=== PATIENT | male | born 1970 | race Caucasian/White ===

== ENCOUNTER 2020-05-10 10:06 | Emergency (ER) | payer OTHER ==
[2020-05-10 11:25] LABS: Absolute Lymphocytes (CBC) 0.9 K/uL (0.7-4.9); Basophils % 0.4 % (0-1.3); Hematocrit 42.3 % (39.6-49.0); Lymphocytes % 9.6 % (15.3-44.8); MPV 8.6 fL (7.6-11.3); RBC Red Blood Cell Count 4.72 M/uL (4.33-5.43)
[2020-05-10] MEDS ORDERED: NA CHLORIDE 0.9% 1,000 ML ONE ×2 (11:38→12:33)
[2020-05-10] MEDS ORDERED: ONDANSETRON 4 MG/2 ML VIAL ONE (11:38)
[2020-05-10 11:46] LABS: ALT/SGPT 21 U/L (12-78); AST/SGOT 19 U/L (15-37); Albumin 3.2 g/dL (3.4-5.0); Alkaline Phosphatase 100 U/L (45-117); BUN Blood Urea Nitrogen 8 mg/dL (7-18); Bicarbonate 26 mmol/L (21-32); Bilirubin Direct 0.2 mg/dL (0-0.2); Bilirubin Total 0.7 mg/dL (0.2-1.0); Glucose Level 104 mg/dL (74-106); Lipase 143 U/L (73-393); NT PRO-BNP 45 pg/mL (<125); Potassium 4.2 mmol/L (3.5-5.1); Protein, Total 7.1 g/dL (6.4-8.2); Sodium Level 136 mmol/L (136-145); Troponin (Emerg Dept Use Only) < 0.02 ng/mL (0.0-0.045)
[2020-05-10 12:15] LABS: Urine Blood NEGATIVE (NEG); Urine Glucose NEGATIVE (NEG)
[2020-05-10 12:16] LABS: Urine Protein NEGATIVE (NEG); Urine pH 5.5 (5.0-7.0)
--- NOTE | 2020-05-10 12:34 | RAD REPORT ---
EXAM DESCRIPTION: RAD - Chest Single View - 05/10/2020 12:16 pm CLINICAL HISTORY: ABDOMINAL DISTENTION Chest pain. COMPARISON: No comparisons FINDINGS: Portable technique limits examination quality. 3-4 cm mass with spiculated margins is seen right suprahilar location. No focal infiltrate is seen. T he heart is normal in size. No displaced fractures.Single screw is seen in the left glenoid. IMPRESSION: 3-4 cm spiculated mass right suprahilar location. Recommend CT chest followup assessment .
--- NOTE | 2020-05-10 12:55 | RAD REPORT ---
EXAM DESCRIPTION: CT - Head Brain Wo Cont - 05/10/2020 12:37 pm CLINICAL HISTORY: Headache;Weakness, history of stage IV lung cancer COMPARISON: No comparisons TECHNIQUE: Axial 5 mm thick images of the head were obtained without IV contrast. All CT scans are performed using dose optimization technique as appropriate and may include automated exposure control or mA/KV adjustment according to patient size. FINDINGS: No intracranial hemorrhage present. No mass effect, edema or shift of midline structures. No acute cortical based infarction seen. Ventricles are normal. In the left parietal lobe near the co nvexity there is encephalomalacia present in the 7 millimeter calcification. Overlying craniotomy ailyn gical changes are present. This is presumed to be site of the resected or treated metastatic lesion. No recurrent mass or edema in this region. Mastoid air cells and visualized portions of the paranasal sinuses are clear. No acute bony findings. IMPRESSION: No hemorrhage, new mass lesion or other acute intracranial finding. Postsurgical changes are present to the skull near the left parietal lobe convexity. No evidence for residual mass or edema at this site.
--- NOTE | 2020-05-10 13:01 | RAD REPORT ---
EXAM DESCRIPTION: CT - Abdomen Pelvis W Contrast - 05/10/2020 12:39 pm CLINICAL HISTORY: ABD PAIN, history of stage IV lung cancer with prior resection of a brain metastas is COMPARISON: No comparisons TECHNIQUE: Biphasic, helical CT imaging of the abdomen and pelvis was performed following 100 ml non -ionic IV contrast. Oral contrast was administered. All CT scans are performed using dose optimization technique as appropriate and may include automated exposure control or mA/KV adjustment according to patient size. FINDINGS: No suspicious findings in the lung bases. The liver, spleen, and pancreas show no suspicious findings. Gallbladder is absent. No biliary tree d ilatation. Symmetric renal function is seen with no hydronephrosis or suspicious renal mass. No pyelonephritis o r acute parenchymal process. No bladder abnormalities. No adrenal abnormalities. A few mildly prominent loops of jejunum noted without wall thickening or edema. No gastric dilatation or wall thickening. No ileum acute finding. The appendix is normal. No colon wall thickening or mass . Sigmoid colon redundant. No specific findings for colitis or diverticulitis. No free air, free fluid or inflammatory stranding. No mass or bulky lymphadenopathy. Small bilater al fat only inguinal hernias are present. No pathologic bone changes seen. L5-S1 disc space is narrowed with degenerative disc gas. Endplate sp urs are present. No acute vascular finding. IMPRESSION: Contrast enhanced CT abdomen and pelvis showing no acute or emergent finding. No eviden ce for liver or peritoneal metastatic disease. A few prominent loops of jejunum are present believed be within range of normal. A mild enteritis is possible. Advanced for age degenerative change at the L5-S1 disc level. No pathologic bone finding.
--- NOTE | 2020-05-10 13:15 | ER ---
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 Pt denies aa5 nausea/vomiting/diarrhea. Pt states "I can't eat". 10:16 Coronavirus screen: Client denies travel out of the [place] in the last 14 days. At this aa5 time, the client does not indicate any symptoms associated with coronavirus-19. Ebola Screen: Patient negative for fever greater than or equal to 101.5 degrees Fahrenheit, and additional compatible Ebola Virus Disease symptoms. Initial Sepsis Screen: Does the patient meet any 2 criteria? No. Patient's initial sepsis screen is negative. Does the patient have a suspected source of infection? No. Patient's initial sepsis screen is negative. Risk Assessment: Do you want to hurt yourself or someone else? Patient reports no desire to harm self or others. Onset of symptoms was April 2020. 10:16 Acuity: LISA 3 aa5 10:16 Method Of Arrival: Ambulatory aa5 Triage Assessment: 10:48 General: Appears in no apparent distress. uncomfortable, Behavior is calm, cooperative, jl7 appropriate for age. Pain: Complains of pain in abdomen diffusely Pain currently is 3 out of 10 on a pain scale. Neuro: Level of Consciousness is awake, alert, obeys commands, Oriented to person, place, time, situation. Cardiovascular: Patient's skin is warm and dry. Respiratory: Airway is patent Respiratory effort is even, unlabored, Respiratory pattern is regular, symmetrical. GI: Abdomen is non-distended, Last BM was May 05, 2020. Derm: Skin is pink, warm \\T\\ dry. Historical: - Allergies: 10:42 Fentanyl; aa5 - Home Meds: 10:48 Keppra 750 mg Oral tab 1 tab 2 times per day [Active]; atorvastatin 80 mg oral tab 1 jl7 tab once daily [Active]; prednisone 20 mg Oral tab [Active]; aspirin 81 mg Oral TbEC once daily [Active]; - PMHx: 10:42 Stage 4 Lung and Brain Cancer; aa5 10:48 High Cholesterol; Seizures; jl7 - PSHx: 10:42 Brain sx; aa5 - Immunization history:: Adult Immunizations unknown. - Social history:: Smoking status: Patient reports the use of cigarette tobacco products, smokes one-half pack cigarettes per day. - Family history:: not pertinent. Screenin:50 Abuse screen: Denies threats or abuse. Denies injuries from another. Nutritional jl7 screening: No deficits noted. Tuberculosis screening: No symptoms or risk factors identified. Assessment: 10:50 General: See triage assessment. jl7 11:20 Reassessment: Patient is alert, oriented x 3, equal unlabored respirations, skin aa5 warm/dry/pink. Pt finished CT oral contrast, CT notified. . 12:30 Reassessment: To bedside to administer NS bolus, pt currently in radiology. . aa5 Vital Signs: 10:16 BP 99 / 74; Pulse 93; Resp 18 S; Temp 98.3(O); Pulse Ox 100% on R/A; Weight 111.58 kg aa5 (R); Height 5 ft. 10 in. (177.80 cm) (R); Pain 3/10; 12:00 BP 92 / 70; Pulse 86; Resp 17; Temp 98.0; Pulse Ox 97% on R/A; mh5 12:55 BP 106 / 89; Pulse 82; Resp 22; Temp 97.8(O); Pulse Ox 98% on R/A; mh5 10:16 Body Mass Index 35.30 (111.58 kg, 177.80 cm) aa5 ED Course: 10:10 Patient arrived in ED. ag5 10:16 Arm band placed on. aa5 10:25 Thai Chicas, RN is Primary Nurse. bp 10:25 Dago Stewart MD is Attending Physician. kori 10:41 Triage completed. aa5 10:42 Jase Brunson, RN is Primary Nurse. jl7 10:50 Patient has correct armband on for positive identification. Bed in low position. Call jl7 light in reach. Side rails up X 1. Pulse ox on. NIBP on. 11:15 Initial lab(s) drawn, by me, sent to lab. Inserted saline lock: 20 gauge in right aa5 antecubital area, using aseptic technique. Blood collected. 12:16 XRAY Chest (1 view) In Process Unspecified. EDMS 12:37 CT Abd/Pelvis - PO and IV Contrast In Process Unspecified. EDMS 12:37 CT Head Brain wo Cont In Process Unspecified. EDMS 13:14 Nicola Milian MD is Referral Physician. kori 13:14 Rebeca Gallegos MD is Referral Physician. [facility] 13:14 Mercy Starr MD is Referral Physician. [facility] 14:37 No provider procedures requiring assistance completed. IV discontinued, intact, jl7 bleeding controlled, No redness/swelling at site. Pressure dressing applied. Administered Medications: 11:22 Drug: NS 0.9% 1000 ml Route: IV; Rate: 1 bolus; Site: right antecubital; aa5 14:10 Follow up: Response: No adverse reaction; IV Status: Completed infusion; IV Intake: jl7 1000ml 11:22 Drug: Zofran (Ondansetron) 4 mg Route: IVP; Site: right antecubital; aa5 12:00 Follow up: Response: No adverse reaction; Nausea is decreased jl7 13:00 Drug: NS 0.9% 1000 ml Route: IV; Rate: 1 bolus; Site: right antecubital; aa5 13:25 Follow up: IV Status: Completed infusion; IV Intake: 1000ml jl7 14:30 Drug: SOLU-Medrol 125 mg Route: IVP; Site: right antecubital; jl7 14:37 Follow up: Response: No adverse reaction jl7 Intake: 13:25 IV: 1000ml; Total: 1000ml. jl7 14:10 IV: 1000ml; Total: 2000ml. jl7 Outcome: 13:15 Discharge ordered by . [facility] 14:37 Discharged to home ambulatory. jl7 14:37 Condition: stable 14:37 Discharge instructions given to patient, Instructed on discharge instructions, follow up and referral plans. medication usage, Demonstrated understanding of instructions, follow-up care, medications, Prescriptions given X 3. 14:38 Patient left the ED. jl7 Signatures: Dispatcher [employer] EDDago Becerra MD MD cha Calderon, Audri, RN RN 5 [facility] Jase Brunson RN RN jl7 Thai Chicas RN RN bp Carolee Sorensen ag5 Corrections: (The following items were deleted from the chart) 12:41 12:39 BP 92 / 70; Pulse 86bpm; Resp 17bpm; Pulse Ox 97% RA; Temp 98.0F; mh5 mh5
--- NOTE | 2020-05-10 13:15 | EDPHYS ---
Physician Documentation [facility] Name: Zeb Chamorro Age: 49 yrs Sex: Male : 1970 Arrival Date: 05/10/2020 Time: 10:10 Bed 5 Private MD: CROW Physician Dago Stewart HPI: 05/10 11:11 This 49 yrs old Male presents to ER via Ambulatory with complaints of kori Decreased Appetite, Abdominal Pain. 11:11 The patient presents with abdominal pain in the upper abdomen, in the lower abdomen. kori Onset: The symptoms/episode began/occurred 2 day(s) ago. The patient presents to the emergency department with nausea, abdominal pain, of the right upper quadrant, left upper quadrant, right lower quadrant and left lower quadrant. Onset: The symptoms/episode began/occurred 2 day(s) ago. Possible causes: unknown. The symptoms are aggravated by nothing. The symptoms are alleviated by remaining still. Associated signs and symptoms: The patient has no apparent associated signs or symptoms. The symptoms do not radiate. Associated signs and symptoms: none. Historical: - Allergies: 10:42 Fentanyl; aa5 - Home Meds: 10:48 Keppra 750 mg Oral tab 1 tab 2 times per day [Active]; atorvastatin 80 mg oral tab 1 jl7 tab once daily [Active]; prednisone 20 mg Oral tab [Active]; aspirin 81 mg Oral TbEC once daily [Active]; - PMHx: 10:42 Stage 4 Lung and Brain Cancer; aa5 10:48 High Cholesterol; Seizures; jl7 - PSHx: 10:42 Brain sx; aa5 - Immunization history:: Adult Immunizations unknown. - Social history:: Smoking status: Patient reports the use of cigarette tobacco products, smokes one-half pack cigarettes per day. - Family history:: not pertinent. ROS: 11:11 Constitutional: Negative for fever, chills, and weight loss, Eyes: Negative for injury, kori pain, redness, and discharge, ENT: Negative for injury, pain, and discharge, Neck: Negative for injury, pain, and swelling, Cardiovascular: Negative for chest pain, palpitations, and edema, Respiratory: Negative for shortness of breath, cough, wheezing, and pleuritic chest pain, Back: Negative for injury and pain, : Negative for injury, bleeding, discharge, and swelling, MS/Extremity: Negative for injury and deformity, Skin: Negative for injury, rash, and discoloration, Neuro: Negative for headache, weakness, numbness, tingling, and seizure, Psych: Negative for depression, anxiety, suicide ideation, homicidal ideation, and hallucinations, Allergy/Immunology: Negative for hives, rash, and allergies, Endocrine: Negative for neck swelling, polydipsia, polyuria, polyphagia, and marked weight changes, Hematologic/Lymphatic: Negative for swollen nodes, abnormal bleeding, and unusual bruising. 11:11 Abdomen/GI: Positive for abdominal pain, nausea, anorexia. Exam: 11:11 Constitutional: This is a well developed, well nourished patient who is awake, alert, kori and in no acute distress. Head/Face: Normocephalic, atraumatic. Eyes: Pupils equal round and reactive to light, extra-ocular motions intact. Lids and lashes normal. Conjunctiva and sclera are non-icteric and not injected. Cornea within normal limits. Periorbital areas with no swelling, redness, or edema. ENT: Nares patent. No nasal discharge, no septal abnormalities noted. Tympanic membranes are normal and external auditory canals are clear. Oropharynx with no redness, swelling, or masses, exudates, or evidence of obstruction, uvula midline. Mucous membranes moist. Neck: Trachea midline, no thyromegaly or masses palpated, and no cervical lymphadenopathy. Supple, full range of motion without nuchal rigidity, or vertebral point tenderness. No Meningismus. Chest/axilla: Normal chest wall appearance and motion. Nontender with no deformity. No lesions are appreciated. Cardiovascular: Regular rate and rhythm with a normal S1 and S2. No gallops, murmurs, or rubs. Normal PMI, no JVD. No pulse deficits. Respiratory: Lungs have equal breath sounds bilaterally, clear to auscultation and percussion. No rales, rhonchi or wheezes noted. No increased work of breathing, no retractions or nasal flaring. Back: No spinal tenderness. No costovertebral tenderness. Full range of motion. Male : Normal genitalia with no discharge or lesions. Skin: Warm, dry with normal turgor. Normal color with no rashes, no lesions, and no evidence of cellulitis. MS/ Extremity: Pulses equal, no cyanosis. Neurovascular intact. Full, normal range of motion. Neuro: Awake and alert, GCS 15, oriented to person, place, time, and situation. Cranial nerves II-XII grossly intact. Motor strength 5/5 in all extremities. Sensory grossly intact. Cerebellar exam normal. Normal gait. Psych: Awake, alert, with orientation to person, place and time. Behavior, mood, and affect are within normal limits. 11:11 Abdomen/GI: Inspection: abdomen appears normal, Bowel sounds: normal, Palpation: mild abdominal tenderness, in the right upper quadrant, left upper quadrant, right lower quadrant and left lower quadrant, Liver: no appreciated palpable abnormalities, Hernia: not appreciated. 11:32 ECG was reviewed by the Attending Physician. [facility] Vital Signs: 10:16 BP 99 / 74; Pulse 93; Resp 18 S; Temp 98.3(O); Pulse Ox 100% on R/A; Weight 111.58 kg aa5 (R); Height 5 ft. 10 in. (177.80 cm) (R); Pain 3/10; 12:00 BP 92 / 70; Pulse 86; Resp 17; Temp 98.0; Pulse Ox 97% on R/A; mh5 12:55 BP 106 / 89; Pulse 82; Resp 22; Temp 97.8(O); Pulse Ox 98% on R/A; mh5 10:16 Body Mass Index 35.30 (111.58 kg, 177.80 cm) aa5 MDM: 10:25 Patient medically screened. [facility] 11:13 Differential diagnosis: Nonspecific abd pain, gastritis, appendicitis, diverticulitis, kori viral gastroenteritis, gastroenteritis, bowel obstruction, cholecystitis, Cholelithiasis, diverticulitis, myocardia ischemia or infarction, non-specific abd pain, pancreatitis, Peptic Ulcer Disease, Pyelonephritis. Data reviewed: vital signs, nurses notes, lab test result(s), EKG, radiologic studies, CT scan, plain films. Data interpreted: Pulse oximetry: on room air is 100 %. Test interpretation: by ED physician or midlevel provider: ECG, plain radiologic studies. Counseling: I had a detailed discussion with the patient and/or guardian regarding: the historical points, exam findings, and any diagnostic results supporting the discharge/admit diagnosis, lab results, radiology results. 05/10 11:10 Order name: Basic Metabolic Panel; Complete Time: 12:17 kori 05/10 11:10 Order name: CBC with Diff; Complete Time: 11:33 [facility] 05/10 11:10 Order name: LFT's; Complete Time: 12:17 [facility] 05/10 11:10 Order name: Magnesium; Complete Time: 12:17 [facility] 05/10 11:10 Order name: NT PRO-BNP; Complete Time: 12:17 [facility] 05/10 11:10 Order name: Troponin (emerg Dept Use Only); Complete Time: 12:17 [facility] 05/10 11:10 Order name: XRAY Chest (1 view); Complete Time: 13:12 [facility] 05/10 11:10 Order name: Lipase; Complete Time: 12:17 [facility] 05/10 11:10 Order name: CT Abd/Pelvis - PO and IV Contrast; Complete Time: 13:12 [facility] 05/10 11:15 Order name: CT Head Brain wo Cont; Complete Time: 13:12 [facility] 05/10 11:26 Order name: Urine Dipstick--Ancillary (enter results); Complete Time: 12:17 05/10 11:10 Order name: EKG; Complete Time: 11:10 [facility] 05/10 11:10 Order name: Cardiac monitoring; Complete Time: 11:23 [facility] 05/10 11:10 Order name: EKG - Nurse/Tech; Complete Time: 11: [facility] 05/10 11:10 Order name: IV Saline Lock; Complete Time: 11: [facility] 05/10 11:10 Order name: Labs collected and sent; Complete Time: 11:23 [facility] 05/10 11:10 Order name: O2 Per Protocol; Complete Time: 11: [facility] 05/10 11:10 Order name: O2 Sat Monitoring; Complete Time: 11: [facility] 05/10 11:10 Order name: Urine Dipstick-Ancillary (obtain specimen); Complete Time: 11:23 [facility] EC:32 Rate is 77 beats/min. Rhythm is regular. QRS [place] is Normal. LA interval is normal. QRS kori interval is normal. QT interval is normal. No Q waves. T waves are Normal. No ST changes noted. Clinical impression: NSR w/ Non-specific ST/T Changes and No evidence of ischemia. Interpreted by me. Reviewed by me. Administered Medications: 11:22 Drug: NS 0.9% 1000 ml Route: IV; Rate: 1 bolus; Site: right antecubital; aa5 14:10 Follow up: Response: No adverse reaction; IV Status: Completed infusion; IV Intake: jl7 1000ml 11:22 Drug: Zofran (Ondansetron) 4 mg Route: IVP; Site: right antecubital; aa5 12:00 Follow up: Response: No adverse reaction; Nausea is decreased jl7 13:00 Drug: NS 0.9% 1000 ml Route: IV; Rate: 1 bolus; Site: right antecubital; aa5 13:25 Follow up: IV Status: Completed infusion; IV Intake: 1000ml jl7 14:30 Drug: SOLU-Medrol 125 mg Route: IVP; Site: right antecubital; jl7 14:37 Follow up: Response: No adverse reaction jl7 Disposition: 05/10/20 13:15 Discharged to Home. Impression: Anorexia, Abdominal tenderness - mild enteritis, Weakness, Carcinoma in situ of right bronchus and lung - stage 4. - Condition is Stable. - Discharge Instructions: Abdominal Pain, Adult, Nausea and Vomiting, Adult, Viral Gastroenteritis, Adult, Weakness, Viral Gastroenteritis, Adult, [id number], Abdominal Pain, Adult, [id number]-yq-Coym, Weakness, [id number]-[id number]. - Prescriptions for Bentyl 20 mg Oral Tablet - take 1 tablet by ORAL route every 6 hours As needed; 20 tablet. Pepcid 20 mg Oral Tablet - take 1 tablet by ORAL route every 12 hours for 10 days; 20 tablet. Zofran 4 mg Oral Tablet - take 1 tablet by ORAL route every 12 hours As needed; 20 tablet. Medrol (Duong) 4 mg Oral Tablets, Dose Pack - take 1 tablet by ORAL route as directed - follow package instructions; 1 packet. - Medication Reconciliation Form, Thank You Letter, Antibiotic Education, Prescription Opioid Use form. - Follow up: Private Physician; When: 2 - 3 days; Reason: Recheck today's complaints, Continuance of care, Re-evaluation by your physician. Follow up: Nicola Milian; When: 2 - 3 days; Reason: Recheck today's complaints, Re-evaluation by your physician. Follow up: Rebeca Gallegos; When: 2 - 3 days; Reason: Recheck today's complaints, Re-evaluation by your physician. Follow up: Mercy Munson; When: 2 - 3 days; Reason: Recheck today's complaints, Re-evaluation by your physician. - Problem is new. - Symptoms have improved. Signatures: Dispatcher [employer] EDMS Dago Stewart MD MD cha Calderon, Audri, RN RN aa5 Jase Brunson RN RN jl7 Corrections: (The following items were deleted from the chart) 13:22 13:15 05/10/2020 13:15 Discharged to Home. Impression: Anorexia; Abdominal tenderness - [facility] mild enteritis; Weakness. Condition is Stable. Discharge Instructions: Abdominal Pain, Adult, Nausea and Vomiting, Adult, Weakness, Abdominal Pain, Adult, [id number]-[id number], Weakness, [id number]-[id number]. Prescriptions for Bentyl 20 mg Oral Tablet - take 1 tablet by ORAL route every 6 hours As needed; 20 tablet, Pepcid 20 mg Oral Tablet - take 1 tablet by ORAL route every 12 hours for 10 days; 20 tablet, Zofran 4 mg Oral Tablet - take 1 tablet by ORAL route every 12 hours As needed; 20 tablet. and Forms are Medication Reconciliation Form, Thank You Letter, Antibiotic Education, Prescription Opioid Use. Follow up: Private Physician; When: 2 - 3 days; Reason: Recheck today's complaints, Continuance of care, Re-evaluation by your physician. Follow up: Nicola Milian; When: 2 - 3 days; Reason: Recheck today's complaints, Re-evaluation by your physician. Follow up: Rebeca Gallegos; When: 2 - 3 days; Reason: Recheck today's complaints, Re-evaluation by your physician. Follow up: Mercy Munson; When: 2 - 3 days; Reason: Recheck today's complaints, Re-evaluation by your physician. Problem is new. Symptoms have improved. [facility] 14:38 13:22 05/10/2020 13:15 Discharged to Home. Impression: Anorexia; Abdominal tenderness - jl7 mild enteritis; Weakness; Carcinoma in situ of right bronchus and lung - stage 4. Condition is Stable. Discharge Instructions: Abdominal Pain, Adult, Nausea and Vomiting, Adult, Weakness, Abdominal Pain, Adult, Kwta-gu-Kvxe, Weakness, [id number]. Prescriptions for Bentyl 20 mg Oral Tablet - take 1 tablet by ORAL route every 6 hours As needed; 20 tablet, Pepcid 20 mg Oral Tablet - take 1 tablet by ORAL route every 12 hours for 10 days; 20 tablet, Zofran 4 mg Oral Tablet - take 1 tablet by ORAL route every 12 hours As needed; 20 tablet. and Forms are Medication Reconciliation Form, Thank You Letter, Antibiotic Education, Prescription Opioid Use. Follow up: Private Physician; When: 2 - 3 days; Reason: Recheck today's complaints, Continuance of care, Re-evaluation by your physician. Follow up: Nicola Milian; When: 2 - 3 days; Reason: Recheck today's complaints, Re-evaluation by your physician. Follow up: Rebeca Gallegos; When: 2 - 3 days; Reason: Recheck today's complaints, Re-evaluation by your physician. Follow up: Mercy Munson; When: 2 - 3 days; Reason: Recheck today's complaints, Re-evaluation by your physician. Problem is new. Symptoms have improved. kori
[2020-05-10] MEDS ORDERED: METHYLPREDNISOLONE 125 MG INJ ONE (14:45)
[2020-05-10 15:13] VITALS: BP 106/89; TEMP 97.8; O2SAT 98
--- NOTE | 2020-05-11 10:10 | EKG ---
Test Date: 2020-05-10 Test Time: 11:22:22 Technician'S Helper: LARRY MEASUREMENT RESULTS: Intervals: Rate: 77 CT: 176 QRSD: 110 QT: 424 QTc: 479 [place]: P: 61 CT: 176 QRS: 50 T: 41 INTERPRETIVE STATEMENTS: Normal sinus rhythm Normal ECG No previous ECG available for comparison Electronically Signed On 05-11-20 10:06:52 CDT by Lewis Armadno
== END 2020-05-10 14:38 | disposition home or self-care (01) ==
LOC: ER 10:06
DX: K52.9 Noninfective gastroenteritis and colitis, unspecified (principal); R53.1 Weakness; D02.21 Carcinoma in situ of right bronchus and lung; F17.210 Nicotine dependence, cigarettes, uncomplicated
CPT/HCPCS: 96361; 93005; 85025; 80048; 36415; 83735; 80076; 81003; 84484; 83690; 83880; 70450; 74177; 71045; 96375; 96374; 99284; Q9967; J7030 ×2; J2930; J2405

== ENCOUNTER 2021-06-08 23:18 | Emergency (ER) | payer OTHER ==
--- OUTSIDE RECORDS SUMMARY | 2021-06-08 23:21 | XMS REPORT | Clinical Summary ---
:1970 Author Organization [facility] MD [facility] Address [address] [place] [address] Care Team Providers Name Role Phone MD Vincent Primary Care Provider Sheree Guzman MD Unavailable Allergies No known active allergies Medications Medication Sig Dispensed Refills Start Date End Date Status ondansetron (ZOFRAN) 8 Take 1 tablet (8 30 tablet 5 02/16/2017 Active mg tabletIndications: mg) by mouth Adenocarcinoma of upper every 8 (eight) lobe of right lung, hours as needed Secondary malignant for nausea or neoplasm of brain vomiting. Additional Information Patient not taking. Reported on 04/13/2017 escitalopram (LEXAPRO) 10 mg Take 1 tablet by mouth 0 03/02/2017 Active tablet daily. OXcarbazepine (TRILEPTAL) 300 Take 1 tablet by mouth 0 03/02/2017 Active mg tablet twice daily. levETIRAcetam (KEPPRA) 500 mg Take 1 tablet (500 mg) 60 tablet 2 03/30/2017 Active tabletIndications: by mouth twice daily. Adenocarcinoma of upper lobe of right lung, Secondary malignant neoplasm of brain folic acid (FOLVITE) 400 mcg Take 1 tablet (400 30 tablet 5 Active tabletIndications: mcg) by mouth daily. Adenocarcinoma of upper lobe of right lung, Secondary malignant neoplasm of brain Additional Information Patient not taking. Reported on 04/13/2017 Active Problems Problem Noted Date Hepatitis C antibody positive with elevated ALT 2016 Secondary malignant neoplasm of mediastinum 03/11/2017 Suicidal ideation 02/19/2017 Moderate major depression, single episode 02/19/2017 ALT (SGPT) level raised 02/19/2017 AST/SGOT level raised 02/19/2017 Overview: Mandatory [facility] ICD-10 2020 UPDATE Personal history of exposure to therapeutic radiation 02/19/2017 Headache 02/16/2017 Nausea and vomiting 02/16/2017 History of craniotomy 02/04/2017 Adenocarcinoma of upper lobe of right lung 01/31/2017 Other headache syndrome 01/05/2017 Secondary malignant neoplasm of brain 01/05/2017 Lung cancer 01/05/2017 Overview: Mandatory [facility] ICD-10 2020 UPDATE Seizure disorder 01/05/2017 Surgical History Surgery Date Site/Laterality Comments BRAIN SURGERY 08/31/2016 [place] ARTHROGRAM SHOULDER LEFT 07/16/1989 - 07/15/1990 Left TONSILLECTOMY Medical History Medical History Date Comments Seizure 11/26/2016 Difficulty speaking 11/28/2016 Depressive disorder 11/28/2016 Anxiety 11/28/2016 Suicide attempt 08/2012 Brain cancer 08/31/2016 Lung cancer 08/31/2016 Family History Medical History Relation Name Comments Lung cancer Maternal Grandmother Throat cancer Maternal Grandmother Lung cancer Paternal Aunt Lung cancer Paternal Grandfather Relation Name Status Comments Maternal Grandmother (Age 88) Paternal Aunt (Age 53) Paternal Grandfather (Age 76) Social History Tobacco Use Types Packs/Day Years Used Date Current Every Day Smoker Cigarettes 1 25 Sta rted: 1985 Smokeless Tobacco: Never Used Tobacco Cessation: Ready to Quit: Yes Alcohol Use Standard Drinks/Week Comments No 0 (1 standard drink = 0.6 oz pure alcoho l) occationally Alcohol Habits Answer Date Recorded How often do you have a drink containing alcohol? Not asked How many drinks containing alcohol do you have on a Not aske d typical day when you are drinking? How often do you have six or more drinks on one occasion? No t asked Comment: occationally 01/05/2017 Sex Assigned at Date Recorded Not on file Obstetrics History Last Filed Vital Signs Not on file Plan of Treatment Health Maintenance Due Date Last Done Comments COVID-19 Vaccination (1) 1977 Results Not on fileafter 06/08/2020 Insurance Payer Benefit Plan / Subscriber ID Effective Phone Address T ype Group Dates [facility] [id number] 2017-Rashawn [facility] [place] [id number] [place] [address] Advance Directives Code Status Date Activated Date Inactivated Comments Full Code 02/19/2017 8:44 PM 02/21/2017 8:30 PM Full Code 02/07/2017 9:36 AM 02/10/2017 4:39 AM Care Teams Senior Escrow Officer Relationship Specialty Start Date End Date Leydi Kaur PCP - General Head and Neck Medical 01/05/17 MD Oncology [facility] [place] [address] Misty Guzman MD Medical Oncology 05/03/17 [id number] [facility] [address] [place] [address]
--- OUTSIDE RECORDS SUMMARY | 2021-06-08 23:22 | XMS REPORT | Continuity of Care Document ---
:1970 Author Organization [facility] t Address [address] [place] [address] Care Team Providers Name Role Phone ALEKSANDER LUTZ Primary Care Physician Unavailable Juanjose CALIXTO Attending Clinician Unavailable Roxana CALXITO Attending Clinician Unavailable Randy LANGFORD Attending Clinician Roxana Calixto MD Attending Clinician Juanjose CALIXTO Admitting Clinician Unavailable Payers Payer Name Policy Type Policy Number Effective Date Expiration Date S ource UNITED MEDICARE [id number] 2020 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 Fermin rso neoplasm neoplasm 00:00: n of of 00 mediastinu mediastinu m m Suicidal Suicidal Disease Active ideation ideation 02-19 Stanley o 00:00: n 00 Moderate Moderate Disease Active major major 02-19 Anderso depression depression 00:00: n , single , single 00 episode episode ALT (SGPT) ALT (SGPT) Disease Active M D level level 02-19 Anderso raised raised 00:00: n 00 Personal Personal Disease Active history of history of 02-19 An derso exposure exposure 00:00: n to to 00 therapeuti therapeuti c c radiation radiation Headache Headache Disease Active 02-16 Anderso 00:00: n 00 Nausea and Nausea and Disease Active M D vomiting vomiting 02-16 Stanley o 00:00: n 00 History of History of Disease Active M D craniotomy craniotomy 02-04 An derso 00:00: n 00 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 Mandatory CMS ICD-10 2020 UPDATE Seizure Seizure Disease Active disorder disorder 01-05 Stanley o 00:00: n 00 No known No known Disease [facility] active active College problems problems of Medicin e Allergies, Adverse Reactions, Alerts Allergy Allergy Status Severity Reaction(s) Onset Inactive Treating Comm ents Source Name Type Date Date Clinician Fentanyl Propensi Active [facility] And ty to 4-14 College Related adverse 00:00: of reaction 00 Medicin s to e drug FENTANYL Allergy [facility] Family History Family Member Diagnosis Comments Start Date Stop Date Source Maternal grandmother Lung cancer MD Stewart Maternal grandmother Throat cancer Horacio Stewart Paternal aunt Lung cancer MD Jones n Paternal grandfather Lung cancer MD Stewart Social History Social Habit Start Date Stop Date Quantity Comments Source History [facility] MD Stewart Alcohol Frequency History AMALIADC MD Stewart Alcohol Std Drinks History [facility] MD Stewart Alcohol Binge History of tobacco Smokes tobacco MD Stewart use daily Exposure to Not sure [facility] Colleg e SARS-CoV-2 (event) of Med icine Alcohol intake 2017-04-13 2017-04-13 Current non-drinker Horacio Stewart 00:00:00 00:00:00 of alcohol (finding) Cigarettes smoked 2017-03-09 2017-03-09 MD Fermin mooney current (pack per 00:00:00 00:00:00 day) - Reported Cigarette 2017-03-09 2017-03-09 MD Stewart pack-years 00:00:00 00:00:00 Tobacco use and 2017-03-09 2017-03-09 Smokeless tobacco MD Stewart exposure 00:00:00 00:00:00 non-user History SDOH 2017-01-05 2017-01-05 occationally MD Robert cage Alcohol Comment 00:00:00 00:00:00 [birth year] At [birth year] MD Angel on 00:00:00 00:00:00 Smoking Status Start Date Stop Date Source Current every day smoker 2020-10-27 00:00:00 [facility] Medications Ordered Filled Start Stop Current Ordering Indication Dosage Frequency Signature Comments Components Source Medication Medication Date Date Medication? Clinician (SIG) Name Name levetiracet Yes 750mg Take 750 [facility] am (KEPPRA) 4-04 mg by [employer] 750 MG 00:00: mouth of tablet 00 daily. Medicin e levetiracet Yes 750mg Take 750 [facility] am (KEPPRA) 4-04 mg by [employer] 750 MG 00:00: mouth of tablet 00 daily. Medicin e TRELEGY Yes 100ug Inhale 100 [facility] ELLIPTA 3-22 mcg by College 100-62.5-25 00:00: mouth of MCG/INH 00 daily. Medicin AEPB e TRELEGY Yes 100ug Inhale 100 [facility] ELLIPTA 3-22 mcg by College 100-62.5-25 00:00: mouth of MCG/INH 00 daily. Medicin AEPB e PROAIR Yes 108ug Inhale 108 [facility] RESPICLICK 3-16 mcg by College 108 (90 00:00: mouth as of Base) 00 needed. Medicin MCG/ACT e AEPB atorvastati Yes 80mg Take 80 mg [facility] n (LIPITOR) 3-12 by mouth Hernandez ege 80 MG 00:00: daily. of tablet 00 Medicin e ibuprofen Yes 800mg Take 800 [facility] (MOTRIN) 3-12 mg by College 800 mg 00:00: mouth of tablet 00 daily. Medicin e atorvastati Yes 80mg Take 80 mg [facility] n (LIPITOR) 3-12 by mouth Hernandez ege 80 MG 00:00: daily. of tablet 00 Medicin e ibuprofen Yes 800mg Take 800 [facility] (MOTRIN) 3-12 mg by College 800 mg 00:00: mouth of tablet 00 daily. Medicin e levETIRAcet Yes Secondary 500mg Take 1 MD am (KEPPRA) 9-15 malignant tablet A nderso 500 mg 00:00: neoplasm of (500 mg) n tablet 00 brain by mouth twice daily. folic acid Yes Secondary 400ug Take 1 MD (FOLVITE) 9-15 malignant tablet And erso 400 mcg 00:00: neoplasm of (400 mcg) n tablet 00 brain by mouth daily. escitalopra Yes 1{tbl} Take 1 MD m (LEXAPRO) 8-18 tablet by And erso 10 mg 00:00: mouth n tablet 00 daily. OXcarbazepi Yes 1{tbl} Take 1 MD ne 8-18 tablet by Anderso (TRILEPTAL) 00:00: mouth n 300 mg 00 twice tablet daily. ondansetron Yes Secondary 8mg Take 1 MD (ZOFRAN) 8 8-04 malignant tablet (8 Anderso mg tablet 00:00: neoplasm of mg) by n 00 brain mouth every 8 (eight) hours as needed for nausea or vomiting. Vital Signs Vital Name Observation Time Observation Value Comments Source HEIGHT 2020-11-02 17:17:00 175 cm WEIGHT 2020-11-02 17:17:00 87.1 kg HEIGHT 2020-11-02 06:29:00 177.8 cm WEIGHT 2020-11-02 06:29:00 87.4 kg HEIGHT 2020-10-29 13:53:00 177.8 cm WEIGHT 2020-10-29 13:53:00 86.183 kg Body height 2020-11-19 18:36:[address] [facility] Body weight 2020-11-19 18:36:00 86.637 kg [facility] BMI 2020-11-19 18:36:00 27.41 kg/m2 [facility] HEIGHT 2020-11-02 17:17:00 175 cm WEIGHT 2020-11-02 17:17:00 87.1 kg HEIGHT 2020-11-02 06:29:00 177.8 cm WEIGHT 2020-11-02 06:29:00 87.4 kg HEIGHT 2020-10-29 13:53:00 177.8 cm WEIGHT 2020-10-29 13:53:00 86.183 kg Systolic blood 2020-10-27 14:23:00 98 mm[Hg] [facility] pressure Medicine Diastolic blood 2020-10-27 14:23:00 72 mm[Hg] [facility] pressure Medicine Heart rate 2020-10-27 14:23:00 73 /min [facility] Body temperature 2020-10-27 14:23:00 35.78 Emelia [facility] Respiratory rate 2020-10-27 14:23:00 18 /min [facility] Body height 2020-10-27 14:23:00 177.8 cm [facility] Body weight 2020-10-27 14:23:00 86.637 kg [facility] BMI 2020-10-27 14:23:00 27.41 kg/m2 [facility] Oxygen saturation in 2020-10-27 14:23:00 100 /min [facility] Arterial blood by Medicine Pulse oximetry HEIGHT 2020-10-27 12:54:00 177.8 cm WEIGHT 2020-10-27 12:54:00 86.183 kg Procedures This patient has no known procedures. Plan of Care Planned Activity Planned Date Details Comments Source Future Scheduled 2020-11-21 TETANUS SHOT (ADULT) [facility] Test 08:49:27 [code = TETANUS SHOT of [facility] cine (ADULT)] Future Scheduled 2020-11-21 COVID-19 Vaccine (1) [employer] Test 08:49:27 [code = COVID-19 of Medicine Vaccine (1)] Future Scheduled 2020-11-21 Hepatitis C screening [employer] Test 08:49:27 (procedure) [code = of Medic ine 482582881] Future Scheduled 2020-11-21 Human immunodeficiency [employer] Test 08:49:27 virus screening of Medicine (procedure) [code = 968064833] Future Scheduled 2020-11-21 MEDICARE IPPE (WELCOME [employer] Test 08:49:27 TO MEDICARE) [code = of Medi cine MEDICARE IPPE (WELCOME TO MEDICARE)] Future Scheduled 2020-11-21 FLU VACCINE > 6 MONTHS [employer] Test 08:49:27 [code = FLU VACCINE > 6 of M edicine MONTHS] Future Scheduled 2020-11-21 BMI FOLLOW UP PLAN [employer] Test 08:49:27 [code = BMI FOLLOW UP of Med icine PLAN] Future Scheduled 2020-11-19 PT INSTR GIVEN - Ordered: [employer] Test 13:26:29 TOBACCO [code = NOCPT] 11/19/2020 of Me dicine Future Scheduled 2020-11-19 PT INSTR GIVEN - BMI>24 Ordered: [facility] Test 13:26:09 [code = NOCPT] 11/19/2020 of Medicine Future Scheduled 1977 COVID-19 Vaccination MD Stewart Test 00:00:00 (1) [code = COVID-19 Vaccination (1)] Future Scheduled PT INSTR GIVEN - Ordered: [employer] Test TOBACCO [code = NOCPT] 10/27/2020 of Me dicine Future Scheduled TETANUS SHOT (ADULT) [employer] Test [code = TETANUS SHOT of Medi cine (ADULT)] Future Scheduled COVID-19 Vaccine (1) [employer] Test [code = COVID-19 of Medicine Vaccine (1)] Future Scheduled Hepatitis C screening [employer] Test (procedure) [code = of Medic ine 921420944] Future Scheduled Human immunodeficiency [employer] Test virus screening of Medicine (procedure) [code = 874548536] Future Scheduled MEDICARE IPPE (WELCOME [employer] Test TO MEDICARE) [code = of Medi cine MEDICARE IPPE (WELCOME TO MEDICARE)] Future Scheduled FLU VACCINE > 6 MONTHS [employer] Test [code = FLU VACCINE > 6 of M edicine MONTHS] Future Scheduled BMI FOLLOW UP PLAN [facility] Test [code = BMI FOLLOW UP of Med icine PLAN] Future Scheduled MRI BRAIN W WO CONTRAST 1 Occurrences [facility] Test [code = 15106-5] starting of Medicine 10/27/2020 until 05/29/2021 Encounters Start End Encounter Admission Attending Care Care Encounter Source Date/Time Date/Time Type Type Clinicians Facility Department ID 2021-04-23 Inpatient VELASQUEZ [facility] Surgery [id number] [facility] 14:14:19 HAM 2021-02-23 2021-02-23 [id number] 08:53:28 10:26:27 HAM Bowman e of Medicin e 2020-11-19 2020-11-19 Office JOSSE Padilla [id number] [facility] 11:12:11 13:50:11 Visit Amanda AMBULATOR [id number] College Y 0.2.7.2.686 of [id number] Medi cristopher 300 e 2020-11-17 2020-11-17 Outpatient VELASQUEZ [facility] [id number] [facility] 09:06:00 09:34:02 HAM duncan of Medicin e 2020-11-01 2020-11-01 Outpatient [facility] [id number] SLE 00:00:00 00:00:00 2020-11-01 2020-11-01 Outpatient [facility] [id number] SLE 00:00:00 00:00:00 2020-11-01 2020-11-[address] [facility] [id number] [facility] 00:00:00 00:00:00 2020-10-29 2020-10-[address] [facility] [id number] SLE 00:00:00 00:00:00 2020-10-27 2020-10-27 Office JOSSE Calixto [id number] [facility] 08:59:57 12:55:18 Visit Ham Schmidt AMBULATOR 350.1.13.21 College Y 0.2.7.2.686 of [id number] Medi cristopher 300 e 2020-10-27 2020-10-27 [facility] [id number] SLE 00:00:00 00:00:00 HAM Results Test Description Test Time Test Comments Results Result Sourc e Comments SHORT-LATENCY 2020-11-14 IOM SPE, ALL LIMBS 1 16:49:00 [facility] 1970 Sex: M INTRAOPERATIVE MONITORING REPORT Patient Name: Junior Parish [facility] Surgery Date: 11/02/20 Ward: [id number] Monitoring began at 808 and ended at 1124 Surgeon: Swapnil Singh MD Examining Neurologist: Isael Kemp MD Monitoring Technologist: LEXIE Smalls Procedure: Redo Left Parietal Craniotomy for Resection of Mass Stimulation Parameters: Ulnar nerves individually stimulated at the wrist Rate 4.7Hz, Intensity 30mA, Duration 0.3ms Posterior Tibial nerves individually stimulated at the ankle Rate 4.7Hz, Intensity 50mA, Duration 0.3ms Filters 30-500Hz, Notch Off Motor strip stimulated anterior to C3 and C4 with alternating polarities Intensity 100-500V, Train Rate 4-5, JUAN 2-3ms Filters 30-2KHz, Notch Off Recording Parameters: CV, CP3, CP4, CPz, and FPz Transcranial electrical Motor Evoked Potentials recorded from the Abductor Pollicis Brevis referenced to the Abductor Digiti Quinti Minimi muscle groups, the Tibialis Anterior referenced to Gastrocnemius muscle groups, and the Abductor Hallucis muscle groups Free-running EEG recorded with bipolar derivation, using modified International 10/20 placements: C3-FPZ, C4-FPZ Description: Intraoperative neurophysiological monitoring was performed using a combination of upper and lower extremity SSEPs, TceMEPs and Free-running EEGs. A real-time connection with the examining neurologist was established and maintained throughout the operative procedure by the monitoring technologist. Upper extremity somatosensory evoked potentials were recorded centrally at the cervical and cortical levels following ulnar nerve stimulation at the wrist. Lower extremity somatosensory evoked potentials were recorded centrally at the cervical and cortical levels following posterior tibial nerve stimulation at the ankle. SSEPs present and reproducible in all extremities at baselines. No changes in SSEPs noted throughout case and at closing. TceMEPs were recorded peripherally from the upper and lower extremities following alternating polarity motor strip stimulation. TceMEP recording responses to motor cortex stimulation were well formed and present in the upper extremities and unobtainable in all muscles in bilateral lower extremities. Surgeon aware of all responses throughout case and at closing. At closing, responses were judged to be essentially unchanged from those of post-positioning baselines. Free-running EEG remained symmetrical throughout the procedure with no focal changes noted to occur. Conclusion: These results suggest the absence of untoward, secondary effects on anterior and posterior column function as a consequence of this surgical procedure. Isael Kemp MD UE EXAM 2020-10-15 Surgical Pathology Report 7 Case: 12:15:00 [id number] Authorizing Provider: Ham Calixto MD Collected: 11/02/2020 10:31 AM Ordering Location: [facility] PERIOPERATIVE Received: 11/02/2020 10:37 AM SERVICES Pathologist: James Muro MD Specimens: A) - Soft Tissue, Other, Left Parietal Lesion for Frozen and Permanent B) - Soft Tissue, Other, Left Parietal Lesion C) - Explant, Hardware - 1 plate and 2 screws for ID A. BRAIN, LEFT PARIETAL, CRANIOTOMY:METASTATIC ADENOCARCINOMA, CONSISTENT WITH LUNG PRIMARYB. BRAIN, LEFT PARIETAL, CRANIOTOMY:DYSTROPHIC CALCIFICATION AND FIBROSISCHOLESTEROL GRANULOMAREACTIVE BRAIN WITH DEGENERATIVE CHANGES, CONSISTENT WITH THERAPY EFFECTNO TUMOR PRESENTC. SKULL, REMOVAL:NEUROSURGICAL HARDDWARE (GROSS EXAMINATION ONLY) Signing Pathologist Direct Phone Line: [phone] signed by James Muro MD on 11/09/2020 at 12:15 [id number] X 2; [id number]; 65750; 95751 X 8; [id number] neoplasm of brain, unspecified location A. Brain, left parietalA. Received fresh for intraoperative consultation labeled with the patient's name, MALATHI, given accession number, and "left parietal lesion" is a 1.5 x 1.1 x 0.6 cm aggregate of soft, dejesus-pink to red-brown, irregular tissues. 1 touch prep is performed. Half of the specimen is submitted for frozen section evaluation in cassette FSA1, and the other half is submitted for permanent sections in cassette A2.B. Received fresh labeled with the patient's name, MRN, given accession number, and "left parietal lesion" is a 1.1 x 0.7 x 0.4 cm piece of soft, dejesus-pink to red-brown irregular tissue with possible surface cautery. The specimen is submitted entirely in a filter cassette, B1.C. Received fresh for gross identification only labeled with the patient's name, MRN, given accession number, and "hardware1 plate and 2 screws per ID" is a rounded, star-shaped, 2.2 x 2.2 x 0.1 cm silver-blue, metallic plate and 2 queen-silver, metallic screws (0.3 cm in length by 0.2 cm in diameter. No sections are submitted as the specimen is for gross identification only.JOVITA (resident)FSA1. BRAIN, LEFT PARIETAL LESION:METASTATIC ADENOCARCINOMAReported by Dr. Muro in person to Dr. Calixto on 11/02/2020 at 10:53 AM.Performed on A-BThe interpretation of this case included the use of immunohistochemistry or special stains.Control Slides Examined: In-house known positive controls were evaluated along with the test tissue. These control slides run alongside of the patients sample show appropriate staining. Internal positive and negative controls when available are evaluated Immunohistochemistry technical testing was performed at [facility], Pathology Laboratory where it was developed and its performance characteristics were determined. It has not been cleared or approved by the U.S. Food and Drug Administration. The FDA has determined that such clearance or approval is not necessary. The test is used for clinical purposes. It should not be regarded as investigational or for research. This laboratory is certified under the Clinical Laboratory Improvement Amendments of 1988 (CLIA-88) as qualified to perform high complexity clinical laboratory testing. POCT-GLUCOSE METER 2020-11-03 16:32:00 Test Item Value Reference Range Interpretation Comme nts POC-GLUCOSE METER (RENETTA) 160 mg/dL 70-110 H : Notified RN/MD: TESTED AT [facility] (test code = 1538) [address] [address] [place], [address]: Administrative Receptionist/Techni pablo ID = [id number] for Michelle Vela MR, BRAIN, [id number] 13:17:00Unlisted Reason for Exam - Click Yes and Enter Reason Below->Yes Unlisted Reason for Exam->s/ptumor resection [facility] 1970 Sex: MFINAL REPORT MR, BRAIN, WITH \\T\\ WITHOUT CONTRAST INDICATION: Unlisted Reason for Exams/p tumor resection TECHNIQUE: Multiplanar, multisequence MR imaging of the brainwas obtained before and after uneventful administration of gadolinium contrast. COMPARISON: October 27, 2020 FINDINGS:Interval surgical resection of nodular enhancement seen in the prior examination without discernible residual lesion. There is small volume of pneumocephalus without concerning contour deformity. No midline shift or hydrocephalus is present. Scattered white matter changes demonstrate nointerval alteration in signal characteristics, postcontrast enhancement or diffusion restriction. Noischemic or hemorrhagic injury has occurred over the interval. IMPRESSION: Status post resection of previously described area of nodular enhancement without worrisome postprocedural findings. Signed:JR Youssef Robert [facility] Verified Date/Time: 11/03/2020 13:17:56 Reading Location: [facility] C013V Neuro Reading Room -GLUCOSE [id number] 11:45:00 Test Item Value Reference Range Interpretation Comments POC-GLUCOSE METER 150 mg/dL 70-110 H : [facility] ([facility] = TESTED AT [facility] [address] 1538) [address] [facility], [address]: Administrative Receptionist/Techni pablo ID = [id number] for Michelle Tomlinson POCT-GLUCOSE [id number] 06:26:00 Test Item Value Reference Range Interpretation Comments POC-GLUCOSE METER 209 mg/dL 70-110 H : TESTED A T [facility] [address] (BEAKER) (test code = LETTY Zhong [facility], 1538) [id number]: Administrative Receptionist/Techni pablo ID = [id number] for Stephanie Delgadillo BASIC METABOLIC [id number] 02:43:00 Test Item Value Reference Range Interpretation Comments SODIUM (BEAKER) 135 meq/L 136-145 L (test code = 381) POTASSIUM (BEAKER) 4.4 meq/L 3.5-5.1 (test code = 379) CHLORIDE (BEAKER) 105 meq/L 98-107 (test code = 382) CO2 (BEAKER) (test 23 meq/L 22-29 code = 355) BLOOD UREA NITROGEN 10 mg/dL 7-21 (BEAKER) (test code = 354) CREATININE (BEAKER) 0.97 mg/dL 0.57-1.25 (test code = 358) GLUCOSE RANDOM 259 mg/dL 70-105 H (BEAKER) (test code = 652) CALCIUM (BEAKER) 8.6 mg/dL 8.4-10.2 (test code = 697) EGFR (BEAKER) (test 83 mL/min/1.73 ESTIMA LAUREN GFR IS code = 1092) sq m NOT ACCURATE CREATININE CLEARANCE IN PREDICTING GLOMERULAR FILTRATION RATE . ESTIMATED GFR I S NOT APPLICABLE FOR DIALYSIS PATIEN TS. Administrative Receptionist ID - PIAYA [id number] 02:43:00 Test Item Value Reference Range Interpretation Comments MAGNESIUM (BEAKER) (test code = 2.0 mg/dL 1.6-2.6 627) Administrative Receptionist ID - ZENAIDA [id number] 02:43:00 Test Item Value Reference Range Interpretation Comments PHOSPHORUS (BEAKER) (test code = 1.8 mg/dL 2.3-4.7 L 604) Administrative Receptionist ID - ZENAIDA LCBC (HEMOGRAM ONLY)2020-11-03 02:27:00 Test Item Value Reference Range Interpretation Comments WHITE BLOOD CELL COUNT (BEAKER) 20.3 K/ L 3.5-10.5 H (test code = 775) RED BLOOD CELL COUNT (BEAKER) 4.15 M/ L 4.63-6.08 L (test code = 761) HEMOGLOBIN (BEAKER) (test code = 12.7 GM/DL 13.7-17.5 L 410) HEMATOCRIT (BEAKER) (test code = 37.1 % 40.1-51.0 L 411) MEAN CORPUSCULAR VOLUME (BEAKER) 89.4 fL 79.0-92.2 (test code = 753) MEAN CORPUSCULAR HEMOGLOBIN 30.6 pg 25.7-32.2 (BEAKER) (test code = 751) MEAN CORPUSCULAR HEMOGLOBIN CONC 34.2 GM/DL 32.3-36.5 (BEAKER) (test code = 752) RED CELL DISTRIBUTION WIDTH 14.0 % 11.6-14.4 (BEAKER) (test code = 412) PLATELET COUNT (BEAKER) (test 253 K/CU MM 150-450 code = 756) MEAN PLATELET VOLUME (BEAKER) 10.0 fL 9.4-12.4 (test code = 754) NUCLEATED RED BLOOD CELLS 0 /100 WBC 0-0 (BEAKER) (test code = 413) POCT-GLUCOSE [id number] 22:02:00 Test Item Value Reference Range Interpretation Comments POC-GLUCOSE METER 206 mg/dL 70-110 H : TESTED A T [facility] [address] (BEAKER) (test code = LETTY [place], 1538) [address]: Administrative Receptionist/Techni pablo ID = [id number] for Stephanie Delgadillo POCT-GLUCOSE [id number] 13:56:00 Test Item Value Reference Range Interpretation Comments POC-GLUCOSE METER 90 mg/dL 70-110 : TESTED A T [facility] [address] (BEAKER) (test code = [address] [place], 1538) [address]: Administrative Receptionist/Techni pablo ID = [id number] for JONATAN OMALLEY BASIC METABOLIC [id number] 13:50:00 Test Item Value Reference Range Interpretation Comments SODIUM (BEAKER) 134 meq/L 136-145 L (test code = 381) POTASSIUM (BEAKER) 4.6 meq/L 3.5-5.1 (test code = 379) CHLORIDE (BEAKER) 100 meq/L 98-107 (test code = 382) CO2 (BEAKER) (test 27 meq/L 22-29 code = 355) BLOOD UREA NITROGEN 8 mg/dL 7-21 (BEAKER) (test code = 354) CREATININE (BEAKER) 0.96 mg/dL 0.57-1.25 (test code = 358) GLUCOSE RANDOM 87 mg/dL 70-105 (BEAKER) (test code = 652) CALCIUM (BEAKER) 9.0 mg/dL 8.4-10.2 (test code = 697) EGFR (BEAKER) (test 84 mL/min/1.73 ESTIMA LAUREN GFR IS code = 1092) sq m NOT ACCURATE CREATININE CLEARANCE IN PREDICTING GLOMERULAR FILTRATION RATE . ESTIMATED GFR I S NOT APPLICABLE FOR DIALYSIS PATIEN TS. Administrative Receptionist ID - DBRAD, CHEST, 2 [id number] 13:40:00Reason for exam:->[facility] 1970 Sex: MFINAL REPORT Chest, two views History: Preoperative assessment Comp arison: none Findings:2.5 cm nodular opacity in the right suprahilar region. The lungs are otherwiseclear. Normal size heart. No pleural effusion or pneumothorax. Impression:2.5 cm nodular opacity in the right suprahilar region. Recommend further evaluation with contrast-enhanced CT scan of the [facility]. Signed: Mariano Quintana MDReport Verified Date/Time: 11/01/2020 13:40:22 Reading Location: [facility] Reading Room [id number] 13:36:00 Test Item Value Reference Range Interpretation Comments PARTIAL THROMBOPLASTIN TIME 38.9 seconds 22.5-36.0 H (BEAKER) (test code = 760) PROTHROMBIN TIME/[id number] 13:35:00 Test Item Value Reference Range Interpretation Comments PROTIME (BEAKER) 13.8 seconds 11.9-14.2 (test code = 759) INR (BEAKER) (test 1.10 See_Comment [Automat ed message] code = 370) The system [employer] generated this result transmitted ref erence range: <=5.90. The reference range was not used to int erpret this result as normal/abnormal . Effective 12/11/2018: PT Reference Range ChangeNew: 11.9-14.2 Previous: 11.7- 14.7RECOMMENDED COUMADIN/WARFARIN INR THERAPY RANGESSTANDARD DOSE: 2.0-3.0 Includes: PROPHYLAXIS for venous thrombosis, systemic embolization; TREATMENT for venous thrombosis and/or pulmonary embolus.HIGH RISK: Target INR is2.5-3.5 for patients wiht mechanical heart valves.URINALYSIS W/ [id number] 13:32:00 Test Item Value Reference Range Interpretation Comments COLOR (BEAKER) (test code Yellow = 470) CLARITY (BEAKER) (test Clear code = 469) SPECIFIC GRAVITY UA 1.015 1.001-1.035 (BEAKER) (test code = 468) PH UA (BEAKER) (test code 5.5 5.0-8.0 = 467) PROTEIN UA (BEAKER) (test Negative Negative code = 464) GLUCOSE UA (BEAKER) (test Negative Negative code = 365) KETONES UA (BEAKER) (test Negative Negative code = 371) BILIRUBIN UA (BEAKER) Negative Negative (test code = 462) BLOOD UA (BEAKER) (test Negative Negative code = 461) NITRITE UA (BEAKER) (test Negative Negative code = 465) LEUKOCYTE ESTERASE UA Negative Negative (BEAKER) (test code = 466) UROBILINOGEN UA (BEAKER) 0.2 mg/dL 0.2-1.0 (test code = 463) RBC UA (BEAKER) (test code 0 /HPF = 519) WBC UA (BEAKER) (test code < /HPF = 520) MUCUS (BEAKER) (test code Occasional = 1574) SOURCE(BEAKER) (test code Urine, Clean Catch = 2795) Administrative Receptionist ID - [auto]Administrative Receptionist ID - techCBC W/PLT COUNT & AUTO DIFFERENTIAL 2020-11-01 13:21:00 Test Item Value Reference Range Interpretation Comments WHITE BLOOD CELL COUNT (BEAKER) 7.6 K/ L 3.5-10.5 (test code = 775) RED BLOOD CELL COUNT (BEAKER) 4.40 M/ L 4.63-6.08 L (test code = 761) HEMOGLOBIN (BEAKER) (test code = 13.5 GM/DL 13.7-17.5 L 410) HEMATOCRIT (BEAKER) (test code = 39.4 % 40.1-51.0 L 411) MEAN CORPUSCULAR VOLUME (BEAKER) 89.5 fL 79.0-92.2 (test code = 753) MEAN CORPUSCULAR HEMOGLOBIN 30.7 pg 25.7-32.2 (BEAKER) (test code = 751) MEAN CORPUSCULAR HEMOGLOBIN CONC 34.3 GM/DL 32.3-36.5 (BEAKER) (test code = 752) RED CELL DISTRIBUTION WIDTH 14.0 % 11.6-14.4 (BEAKER) (test code = 412) PLATELET COUNT (BEAKER) (test 261 K/CU MM 150-450 code = 756) MEAN PLATELET VOLUME (BEAKER) 9.9 fL 9.4-12.4 (test code = 754) NUCLEATED RED BLOOD CELLS 0 /100 WBC 0-0 (BEAKER) (test code = 413) NEUTROPHILS RELATIVE PERCENT 49 % (BEAKER) (test code = 429) LYMPHOCYTES RELATIVE PERCENT 40 % (BEAKER) (test code = 430) MONOCYTES RELATIVE PERCENT 7 % (BEAKER) (test code = 431) EOSINOPHILS RELATIVE PERCENT 3 % (BEAKER) (test code = 432) BASOPHILS RELATIVE PERCENT 1 % (BEAKER) (test code = 437) NEUTROPHILS ABSOLUTE COUNT 3.72 K/ L 1.78-5.38 (BEAKER) (test code = 670) LYMPHOCYTES ABSOLUTE COUNT 3.03 K/ L 1.32-3.57 (BEAKER) (test code = 414) MONOCYTES ABSOLUTE COUNT (BEAKER) 0.54 K/ L 0.30-0.82 (test code = 415) EOSINOPHILS ABSOLUTE COUNT 0.19 K/ L 0.04-0.54 (BEAKER) (test code = 416) BASOPHILS ABSOLUTE COUNT (BEAKER) 0.05 K/ L 0.01-0.08 (test code = 417) IMMATURE GRANULOCYTES-RELATIVE 0 % 0-1 PERCENT (BEAKER) (test code = 2801) MR, BRAIN, WITHOUT / WITH IV [id number] 14:20:00Unlisted Reason for Exam - Click Yes and Enter Reason Below->YesUnlisted Reason for Exam->Brain [facility] 1970 Sex: MFINAL REPORT MR, BRAIN, WITHOUT / WITH IV CONTRAST HISTORY: Brain t umor follow-up COMPARISON: None available at time of dictation. TECHNIQUE:Multiplanar, multisequence MRI of the brain (including diffusion- weighted imaging) was performed before and after the administration of intravenous, gadolinium based contrast. DISCUSSION: Scalp/bone marrow: Left frontal and parietal craniotomy changes are present..Brain sulci: Appropriate for patient's age.Ventricles: Normal in size and configuration. No hydrocephalus. Extra-axial spaces: Focal nodular left parafalcine dural enhancement, adjacent to the left parietal craniotomy, measures up to 1.3 cm in size and abuts the left superior parietal lobule postsurgical cavity described below. No additional extra-axial masses orfluid collections. Parenchyma:Hemosiderin stained left superior parietal lobule resection cavity (along left pars marginalis) is associated with hemosiderin staining and a few nodular foci of enhancement along the margins (measuring up to 1 cm and size). Mild surrounding parenchymal T2/FLAIR hyperintensity is present. There is no significant mass effect. Smaller resection cavity along the left precentral sulcus is also associated with hemosiderin staining and mild linear enhancement. There is subtleminimal surrounding T2/FLAIR hyperintensity without significant mass effect. Scattered T2/FLAIR hyperintense foci throughout the supratentorial white matter are likely chronic microvascular ischemic changes. Otherwise, no acute hemorrhage, or acute vascular insults. Vessels: Normal flow voids in major arteries and veins.Sellar/Suprasellar region: No abnormalities.Craniocervical junction: No abnormalities.Incidental findings: Trace mastoid effusions are present, left greater than right. IMPRESSION:Prior imaging was not available for review at the time of this dictation. 1.Nodular enhancement alongthe margins of the left superior parietal lobule resection cavity could be due to residual tumor and/or posttreatment change. Mild surrounding parenchymal T2/FLAIR hyperintensity may be due to gliosis or vasogenic edema.2.Smaller left precentral sulcus resection cavity with mild linear enhancement, which may be postsurgical change.3.Otherwise, no acute intracranial abnormalities. No significant mass effect or brain herniation.4.No definite additional intracranial or calvarial mass.5.Mild to moderate supratentorial chronic microvascular ischemic change. Signed: Won Bains MDReport Verified Date/Time: 10/27/2020 14:20:40 Reading Location: [place] [id number]
[2021-06-08 23:46] LABS: Absolute Lymphocytes (CBC) 2.9 K/uL (0.7-4.9); Basophils % 0.6 % (0-1.3); Lymphocytes % 34.9 % (15.3-44.8); MPV 8.6 fL (7.6-11.3); Protime INR 1.1; RBC Red Blood Cell Count 4.17 M/uL (4.33-5.43)
[2021-06-09 00:01] LABS: ALT/SGPT 20 U/L (12-78); AST/SGOT 22 U/L (15-37); Albumin 3.2 g/dL (3.4-5.0); Alkaline Phosphatase 73 U/L (45-117); BUN Blood Urea Nitrogen 14 mg/dL (7-18); Bicarbonate 23 mmol/L (21-32); Bilirubin Direct < 0.1 mg/dL (0-0.2); Bilirubin Total 0.3 mg/dL (0.2-1.0); Glucose Level 102 mg/dL (74-106); Magnesium 1.7 mg/dL (1.8-2.4); NT PRO-BNP 74 pg/mL (<125); Potassium 3.7 mmol/L (3.5-5.1); Protein, Total 6.5 g/dL (6.4-8.2); Sodium Level 139 mmol/L (136-145); Troponin (Emerg Dept Use Only) < 0.02 ng/mL (0.0-0.045)
[2021-06-09] MEDS ORDERED: LEVETIRACETAM 500 MG/5 ML VIAL IV ONE (01:53)
[2021-06-09] MEDS ORDERED: NA CHLORIDE 0.9% 100 ML ONE (01:55)
--- NOTE | 2021-06-09 03:42 | EDPHYS ---
Physician Documentation [facility] Name: Zeb Chamorro Age: 50 yrs Sex: Male : 1970 Arrival Date: 06/08/2021 Time: 23:20 Bed 4 Private MD: ED Physician Chalo Hutson HPI: 06/09 00:46 This 50 yrs old Male presents to ER via EMS with complaints of Seizure. kdr 00:46 The patient presents after having a single isolated seizure, that lasted 2 minute(s), kdr the episode(s) was witnessed, by family, mother. Character of seizure(s): Loss of consciousness: the patient experienced loss of consciousness, Motor activity: generalized, shaking all over. Seizure onset: just prior to arrival. Context: the seizure(s) was witnessed, by family, mother, occurred at home, occurred while the patient was at rest. Seizure Hx: Last seizure: The patient's last seizure "not sure", Seizure medications: Keppra. Associated injury: The patient did not suffer any apparent associated injury. EMS care: none. Current symptoms: Currently, the patient is not experiencing any symptoms, the patient feels back to baseline. The patient has not experienced similar symptoms in the past. The patient has not recently seen a physician. EMS was called to the patient's home when his mother discovered that he was having a seizure. She indicated that the seizure lasted about 2 minutes. She also indicated that the last time he had a seizure like this they found a new brain tumor. Historical: - Allergies: 06/08 23:40 Fentanyl; tw5 - Home Meds: 23:40 atorvastatin 80 mg Oral tab 1 tab once daily [Active]; Keppra 750 mg Oral tab 1 tab 2 tw5 times per day [Active]; pregabalin 100 mg Oral cap 1 cap 2 times per day [Active]; - PMHx: 23:40 High Cholesterol; Seizures; Stage 4 Lung and Brain Cancer; tw5 - Immunization history:: Client reports having NOT received the Covid vaccine. - Social history:: Smoking status: Patient reports the use of cigarette tobacco products, 10 cigarettes a day. ROS: 06/09 00:46 Constitutional: Negative for fever, chills, and weight loss, Eyes: Negative for injury, kdr pain, redness, and discharge, Neck: Negative for injury, pain, and swelling, Cardiovascular: Negative for chest pain, palpitations, and edema, Respiratory: Negative for shortness of breath, cough, wheezing, and pleuritic chest pain, Abdomen/GI: Negative for abdominal pain, nausea, vomiting, diarrhea, and constipation, Back: Negative for injury and pain, : Negative for injury, bleeding, discharge, and swelling, MS/Extremity: Negative for injury and deformity, Skin: Negative for injury, rash, and discoloration, Neuro: Negative for headache, weakness, numbness, tingling, and seizure activity. Patient's baseline speech is slow and measured. He does respond appropriately to questions and is able to her give his history as well as his medications Psych: Negative for depression, anxiety, suicide ideation, homicidal ideation, and hallucinations, Allergy/Immunology: Negative for hives, rash, and allergies, Endocrine: Negative for neck swelling, polydipsia, polyuria, polyphagia, and marked weight changes, Hematologic/Lymphatic: Negative for swollen nodes, abnormal bleeding, and unusual bruising. Neuro: Positive for seizure activity, weakness. Exam: 00:46 Constitutional: This is a well developed, well nourished patient who is awake, alert, kdr and in no acute distress. Head/Face: Normocephalic, atraumatic. Eyes: Pupils equal round and reactive to light, extra-ocular motions intact. Lids and lashes normal. Conjunctiva and sclera are non-icteric and not injected. Cornea within normal limits. Periorbital areas with no swelling, redness, or edema. Neck: Trachea midline, no thyromegaly or masses palpated, and no cervical lymphadenopathy. Supple, full range of motion without nuchal rigidity, or vertebral point tenderness. No Meningismus. Chest/axilla: Normal chest wall appearance and motion. Nontender with no deformity. No lesions are appreciated. Cardiovascular: Regular rate and rhythm with a normal S1 and S2. No gallops, murmurs, or rubs. Normal PMI, no JVD. No pulse deficits. Respiratory: Lungs have equal breath sounds bilaterally, clear to auscultation and percussion. No rales, rhonchi or wheezes noted. No increased work of breathing, no retractions or nasal flaring. Abdomen/GI: Soft, non-tender, with normal bowel sounds. No distension or tympany. No guarding or rebound. No evidence of tenderness throughout. Back: No spinal tenderness. No costovertebral tenderness. Full range of motion. Skin: Warm, dry with normal turgor. Normal color with no rashes, no lesions, and no evidence of cellulitis. MS/ Extremity: Pulses equal, no cyanosis. Neurovascular intact. Full, normal range of motion. Psych: Awake, alert, with orientation to person, place and time. Behavior, mood, and affect are within normal limits. 00:46 Neuro: Orientation: appropriate for stated age, Mentation: responsive to voice able to follow commands, slow to respond, Motor: moves all fours, Sensation: no obvious gross deficits, Gait: unable to assess, not tested. 00:56 ECG was reviewed by the Attending Physician. kdr Vital Signs: 06/08 23:38 BP 98 / 66; Pulse 92; Resp 20; Temp 97.9; Pulse Ox 99% on R/A; Weight 75.3 kg; Height 5 tw5 ft. 10 in. (177.80 cm); Pain 0/10; 06/09 00:30 BP 92 / 69; Pulse 75; Resp 18; Pulse Ox 100% on R/A; df1 01:39 BP 92 / 70; Pulse 86; Resp 18; Pulse Ox 99% on R/A; df1 03:00 BP 99 / 72; Pulse 89; Resp 18; Pulse Ox 99% on R/A; df1 04:09 BP 96 / 68; Pulse 85; Resp 18; Pulse Ox 99% on R/A; df1 06/08 23:38 Body Mass Index 23.82 (75.30 kg, 177.80 cm) tw5 Wilfred Coma Score: 06/08 23:40 Eye Response: spontaneous(4). Verbal Response: oriented(5). Motor Response: obeys tw5 commands(6). Total: 15. MDM: 06/09 03:41 Patient medically screened. kdr 03:42 Data reviewed: vital signs, nurses notes, lab test result(s), radiologic studies. kdr Counseling: I had a detailed discussion with the patient and/or guardian regarding: the historical points, exam findings, and any diagnostic results supporting the discharge/admit diagnosis, lab results, radiology results, the need for outpatient follow up. ED course: Patient continued to be stable in the ED without any further convulsive episodes. We discussed the fact that the patient given his underlying medical conditions and pathology, needs to continue on the Keppra as prescribed. He indicated that he has been trying to get off the Keppra. I discussed with him the need for continued use to prevent further seizures. ED course: Patient was happy with the care provided and the plan for discharge with follow-up. 06/08 23:25 Order name: Basic Metabolic Panel; Complete Time: 03:32 kdr 06/08 23:25 Order name: CBC with Diff; Complete Time: : kdr 06/08 23:25 Order name: LFT's; Complete Time: : kdr 06/08 23:25 Order name: Magnesium; Complete Time: : kdr 06/08 23:25 Order name: NT PRO-BNP; Complete Time: : kdr 06/08 23:25 Order name: PT-INR; Complete Time: : kdr 06/08 23:25 Order name: Troponin (emerg Dept Use Only); Complete Time: : kdr 06/08 23:25 Order name: XRAY Chest (1 view) kdr 06/08 23:25 Order name: EKG; Complete Time: : kdr 06/08 23:25 Order name: Cardiac monitoring; Complete Time: : [facility] 06/08 23:25 Order name: CT Head Brain wo Cont kdr 06/08 23:44 Order name: SARS-COV-2 RT PCR; Complete Time: 03:32 EDMS 06/08 23:25 Order name: EKG - Nurse/Tech; Complete Time: 23: [facility] 06/08 23:25 Order name: IV Saline Lock; Complete Time: : [facility] 06/08 23:25 Order name: Labs collected and sent; Complete Time: : kdr 06/08 23:25 Order name: O2 Per Protocol; Complete Time: : [facility] 06/08 23:25 Order name: O2 Sat Monitoring; Complete Time: : kdr EC:56 Rate is 89 beats/min. Rhythm is regular, Sinus Rhythm with No ectopy. QRS Mobile is kdr Normal. FL interval is normal. QRS interval is normal. QT interval is normal. Clinical impression: NSR w/ Non-specific ST/T Changes. Administered Medications: 02:18 Drug: Keppra (levETIRAcetam) 750 mg Route: IV; Rate: bolus; Site: left antecubital; df1 Disposition Summary: 06/09/21 03:41 Discharge Ordered Location: Home kdr Problem: an acute exacerbation kdr Symptoms: are resolved kdr Condition: Stable kdr Diagnosis - Other seizures - Secondary to noncompliance with Keppra kdr Followup: kdr - With: Private Physician - When: 2 - 3 days - Reason: If symptoms return, Further diagnostic work-up, Recheck today's complaints, Continuance of care, Re-evaluation by your physician Discharge Instructions: - Discharge Summary Sheet kdr - Seizure, Adult, [id number] kdr Forms: - Medication Reconciliation Form kdr - Thank You Letter kdr Signatures: Dispatcher [employer] EDMS Chalo Hutson MD MD kdr Consuelo Newman df1 Casie Christiansen tw5 Corrections: (The following items were deleted from the chart) 06/08 23:42 23:40 Home Meds: aspirin 81 mg Oral cpDR; tw5 tw5 23:43 23:26 CORONAVIRUS+Z ordered. EDMS EDMS
--- NOTE | 2021-06-09 03:42 | ER ---
Nurse's Notes [facility] Name: Zeb Chamorro Age: 50 yrs Sex: Male : 1970 Arrival Date: 06/08/2021 Time: 23:20 Bed 4 Private MD: Diagnosis: Other seizures-Secondary to noncompliance with Keppra Presentation: 06/08 23:38 Chief complaint: EMS states: " He was found at home after having a seizures, it was tw5 witnessed by mom who stated that it lasted 2 min. The last time he had a seizure like this they found a brain tumor.". Coronavirus screen: Vaccine status: Patient reports being unvaccinated. Ebola Screen: Patient negative for fever greater than or equal to 101.5 degrees Fahrenheit, and additional compatible Ebola Virus Disease symptoms Patient denies exposure to infectious person. Patient denies travel to an Ebola-affected area in the 21 days before illness onset. Initial Sepsis Screen: Does the patient meet any 2 criteria? No. Patient's initial sepsis screen is negative. Does the patient have a suspected source of infection? No. Patient's initial sepsis screen is negative. Risk Assessment: Do you want to hurt yourself or someone else? Patient reports no desire to harm self or others. Onset of symptoms was June 08, 2021. 23:38 Method Of Arrival: EMS: [facility] tw5 23:38 Acuity: LISA 2 tw5 Triage Assessment: 23:40 General: Appears in no apparent distress. uncomfortable, Behavior is calm, cooperative, tw5 appropriate for age. Pain: Complains of pain in " My head hurts" Pain currently is 8 out of 10 on a pain scale. Neuro: Level of Consciousness is awake, alert, obeys commands, Oriented to person, place, time, situation, Senior Energy Trader are equal bilaterally. Historical: - Allergies: 23:40 Fentanyl; tw5 - Home Meds: 23:40 atorvastatin 80 mg Oral tab 1 tab once daily [Active]; Keppra 750 mg Oral tab 1 tab 2 tw5 times per day [Active]; pregabalin 100 mg Oral cap 1 cap 2 times per day [Active]; - PMHx: 23:40 High Cholesterol; Seizures; Stage 4 Lung and Brain Cancer; tw5 - Immunization history:: Client reports having NOT received the Covid vaccine. - Social history:: Smoking status: Patient reports the use of cigarette tobacco products, 10 cigarettes a day. Screenin:43 Abuse screen: Denies threats or abuse. Denies injuries from another. Nutritional tw5 screening: No deficits noted. Tuberculosis screening: No symptoms or risk factors identified. Fall Risk Fall in past 12 months (25 points). Secondary diagnosis (15 points) IV access (20 points). Ambulatory Aid- None/Bed Rest/Nurse Assist (0 pts). Gait- Weak (10 pts.). Assessment: 23:43 Pain: Pain currently is 8 out of 10 on a pain scale. Neuro: Level of Consciousness is tw5 awake, alert, obeys commands, Oriented to person, place, time, situation, Moves all extremities. Cardiovascular: Rhythm is regular. Respiratory: Airway is patent Trachea midline Respiratory effort is even, unlabored. Vital Signs: 23:38 BP 98 / 66; Pulse 92; Resp 20; Temp 97.9; Pulse Ox 99% on R/A; Weight 75.3 kg; Height 5 tw5 ft. 10 in. (177.80 cm); Pain 0/10; 06/09 00:30 BP 92 / 69; Pulse 75; Resp 18; Pulse Ox 100% on R/A; df1 01:39 BP 92 / 70; Pulse 86; Resp 18; Pulse Ox 99% on R/A; df1 03:00 BP 99 / 72; Pulse 89; Resp 18; Pulse Ox 99% on R/A; df1 04:09 BP 96 / 68; Pulse 85; Resp 18; Pulse Ox 99% on R/A; df1 06/08 23:38 Body Mass Index 23.82 (75.30 kg, 177.80 cm) tw5 Wilfred Coma Score: 06/08 23:40 Eye Response: spontaneous(4). Verbal Response: oriented(5). Motor Response: obeys tw5 commands(6). Total: 15. ED Course: 23:20 Patient arrived in ED. wm 23:22 Chalo Hutson MD is Attending Physician. kdr 23:27 Casie Christiansen is Primary Nurse. tw5 23:32 Basic Metabolic Panel Sent. tw5 23:32 Troponin (emerg Dept Use Only) Sent. tw5 23:32 PT-INR Sent. tw5 23:32 NT PRO-BNP Sent. tw5 23:32 Magnesium Sent. tw5 23:32 LFT's Sent. tw5 23:32 CBC with Diff Sent. tw5 23:40 Triage completed. tw5 23:40 Arm band placed on. Patient seizure precautions. EKG completed in triage. Results shown tw5 to MD. 23:43 Initial lab(s) drawn, by me, sent to lab. Maintain EMS IV. Dressing intact. Good blood tw5 return noted. Site clean \\T\\ dry. Gauge \\T\\ site: 18 G LAC. 23:43 Patient has correct armband on for positive identification. Placed in gown. Bed in low tw5 position. Call light in reach. Side rails up X2. Seizure precautions initiated. annealing operator on. Pulse ox on. NIBP on. Door closed. Noise minimized. Lights dimmed. Moved to private room. Warm blanket given. Pillow given. Verbal reassurance given. 23:44 X-ray(s) taken. tw5 23:49 XRAY Chest (1 view) In Process Unspecified. EDMS 06/09 00:09 CT Head Brain wo Cont In Process Unspecified. EDMS 04:08 No provider procedures requiring assistance completed. intact, bleeding controlled, No df1 redness/swelling at site. Pressure dressing applied. Administered Medications: 02:18 Drug: Keppra (levETIRAcetam) 750 mg Route: IV; Rate: bolus; Site: left antecubital; df1 Outcome: 03:41 Discharge ordered by . kdr 04:57 Discharged to home via ambulance. df1 04:57 Condition: stable 04:57 Discharge instructions given to patient, Instructed on discharge instructions, follow up and referral plans. Demonstrated understanding of instructions, follow-up care. 04:58 Patient left the ED. df1 Signatures: Dispatcher [employer] EDMS Chalo Hutson MD MD kdr Marsh, Wendy wm Furlich, Dawn df1 Casie Christiansen tw5 Corrections: (The following items were deleted from the chart) 06/08 23:42 23:40 Home Meds: aspirin 81 mg Oral cpDR; tw5 tw5
[2021-06-09 05:03] VITALS: TEMP 97.9
[2021-06-09 05:06] VITALS: O2SAT 99
[2021-06-09 05:10] VITALS: BP 96/68
--- NOTE | 2021-06-09 10:50 | RAD REPORT ---
[facility] 11[facility]49 pm CLINICAL HISTORY: Seizure COMPARISON: January 2021 FINDINGS: A 3.5 centimeter right upper lobe opacity without significant change. Please refer to prio r report for recommendation The remainder of the lungs appear clear. Heart is normal size
--- NOTE | 2021-06-09 13:22 | RAD REPORT ---
EXAM DESCRIPTION: CT - Head Brain Wo Cont - 06/09/2021 6:47 am CLINICAL HISTORY: 50 years, Male, SEIZURE COMPARISON: None. FINDINGS: Multiple transaxial tomograms of the brain were obtained from the base of the skull to the vertex without contrast. 2-D multiplanar reformats and the coronal and sagittal plane were performed and reviewed. This exam was performed according to our departmental dose-optimization protocol, which includes auto mated exposure control, adjustment of the mA and/or kV according to patient size and/or use of iterat freddie reconstruction technique. Brain parenchyma as well as the queen and white matter differentiation demonstrate to be unremarkable. There is mild prominence of the sulci and gyri are corresponding to mild brain atrophy. There is no midline shift and/or mass effect. There is no evidence for acute hemorrhage. Again there is small foc us of encephalomalacia within the left parietal lobe findings could correspond to perhaps prior evacu ation and/or ventricular site of previous ventricular peritoneal shunt. Lateral ventricles and cist erns displace normal appearance. No intra or extra axial fluid collections were seen. The calvarium is intact with no evidence for fracture. The visualized portions of the paranasal sinuses and orbits demonstrate to be clear. IMPRESSION: No acute intracranial hemorrhage identified. Encephalomalacia within the left parietal lobe findings could correspond to perhaps prior evacuation and/or area of fracture and/or site of drainage catheter/SHRIMP BOAT CAPTAIN shunt. Mild brain atrophy. Electronically signed by: Tyrone Guevara MD 06/09/2021 12:14 AM IMPACT HAMMER OPERATOR Due to temporary technical issues with the PACS/Fluency reporting system, reports are being signed by the in house radiologists without review as a courtesy to insure prompt reporting. The interpreting radiologist is fully responsible for the content of the report.
== END 2021-06-09 04:58 | disposition home or self-care (01) ==
LOC: ER 23:18
DX: G40.89 Other seizures (principal); Z91.14 Patient's other noncompliance with medication regimen; F17.210 Nicotine dependence, cigarettes, uncomplicated; E78.00 Pure hypercholesterolemia, unspecified; Z20.822 Contact with and (suspected) exposure to COVID-19; Z85.841 Personal history of malignant neoplasm of brain; Z85.118 Personal history of other malignant neoplasm of bronchus and lung; Z88.5 Allergy status to narcotic agent
CPT/HCPCS: 93005 ×2; 85025; 80048; 36415; 83735; 85610; 80076; 84484; 83880; 70450; 71045; 96374; 99284; U0003; J1953